=== PATIENT | female | born 1995 | race Caucasian/White ===

== ENCOUNTER 2017-05-11 07:10 | Inpatient (IN) | payer OTHER ==
[2017-05-11] MEDS ORDERED: AMPICILLIN SODIUM 2 GM VIAL ONE (09:02)
[2017-05-11] MEDS ORDERED: TUBERCULIN PPD 5 TU/0.1ML SYRINGE (IN PATIENT USE ONLY) ID ONE (09:15)
[2017-05-11] MEDS ORDERED: AMPICILLIN - 2 GM in SODIUM CHLORIDE 100 ML IVPB ONE (09:29)
[2017-05-11] MEDS ORDERED: OXYTOCIN 20 UNITS in 0.9% NS 40 UNIT/2,000 ML INFUS.BAG IV ONE (09:29)
[2017-05-11] MEDS ORDERED: LIDOCAINE HCL 1% PRESERVATIVE FREE - 30ML VIAL ONE (09:29)
[2017-05-11] MEDS ORDERED: ELECTROLYTE-148 SOLN 1,000 ML IV SCH (09:30)
--- NOTE | 2017-05-11 09:34 | HP ---
Past Medical History - Admission Chief Complaint: Labor pain History of Present Illness: 22 yo @ 39 weeks gestation, EDC 05/18/17 admitted for labor pain. History Source: Patient Limitations to Obtaining History: No Limitations - Past Medical History ...: 2 ...Para: 1 ...Term: 1 ...EDC by Debbie: 05/17/17 - Past Surgical History Past Surgical History: Yes: None Hx Myomectomy: No Hx Transabdominal Cerclage: No - Smoking History Have you smoked in the past 12 months: No - Alcohol/Substance Use Hx Alcohol Use: No History of Substance Use: reports: None - Social History Usual Living Arrangement: Yes: With Spouse History of Recent Travel: No Home Medications - Allergies Allergies/Adverse Reactions: Allergies Allergy/AdvReac Type Severity Reaction Status Date / Time No Known Allergies Allergy Verified 01/19/17 22:19 - Home Medications Home Medications: Ambulatory Orders Vitamins (Sjr) - 1 tab PO DAILY 05/11/17 Family Disease History - Family Disease History Family History: Unremarkable Review of Systems - Review of Systems Constitutional: reports: No Symptoms Eyes: reports: No Symptoms HENT: reports: No Symptoms Neck: reports: No Symptoms Cardiovascular: reports: No Symptoms Respiratory: reports: No Symptoms Gastrointestinal: reports: No Symptoms Genitourinary: reports: Pain Breasts: reports: No Symptoms Reported Musculoskeletal: reports: No Symptoms Integumentary: reports: No Symptoms Neurological: reports: No Symptoms Endocrine: reports: No Symptoms Hematology/Lymphatic: reports: No Symptoms Pain Intensity: 8 Physical Exam - Maternity Constitutional: Yes: Well Nourished Eyes: Yes: Conjunctiva Clear HENT: Yes: Atraumatic Neck: Yes: Supple Cardiovascular: Yes: Regular Rate and Rhythm Lungs: Clear to auscultation Breast(s): Yes: WNL - Abdominal Exam/OB Number of Fetuses: Single Presentation: Vertex Contractions: Yes Regularity: Irregular - Vaginal Exam/OB Dilatation (cm): 4 Effacement (%): 80 Amniotic Membrane Status: Ruptured Amniotic Fluid: Yes: Clear Station: -2 - Physical Exam Integumentary: Yes: WNL ...Motor Strength: WNL Psychiatric: Yes: Alert, Oriented Problem List - Problems (1) Pain during labor Code(s): O99.89 - OTH DISEASES AND CONDITIONS COMPL PREG/CHLDBRTH; R52 - PAIN, UNSPECIFIED Assessment/Plan Active labor Analgesia as needed Anticipate
[2017-05-11 09:50] VITALS: BMI 34.3
[2017-05-11 10:00] LABS: INR 0.98 (0.82-1.09); PROTHROMBIN TIME (PATIENT) 11.1 SEC (9.98-11.88)
[2017-05-11 10:02] LABS: ACTIVATED PTT 22.4 SECONDS (26.9-34.4)
[2017-05-11 10:07] LABS: BASO % 0.5 % (0-2.0); EOS % 0.1 % (0-4.5); HEMATOCRIT 35.2 % (32.4-45.2); HEMOGLOBIN 11.1 GM/dL (10.7-15.3); LYMPH % 12.5 % (8-40); MCH 25.1 pg (25.7-33.7); MCHC 31.4 g/dl (32.0-36.0); MEAN PLT VOLUME 8.9 fl (7.5-11.1); MONO % 6.6 % (3.8-10.2); NEUT % 80.3 % (42.8-82.8); PLATELET COUNT 291 K/MM3 (134-434); RDW 15.8 % (11.6-15.6); WHITE BLOOD COUNT 15.9 K/mm3 (4.0-10.0)
[2017-05-11 10:15] LABS: ANION GAP 12 (8-16); BLOOD UREA NITROGEN 7 mg/dL (7-18); CALCIUM 8.1 mg/dL (8.5-10.1); CHLORIDE 103 mmol/L (98-107); CO2 20 mmol/L (21-32); CREATININE 0.5 mg/dL (0.55-1.02); GLUCOSE,RANDOM 115 mg/dL (74-106); POTASSIUM 3.9 mmol/L (3.5-5.1); SODIUM 135 mmol/L (136-145)
[2017-05-11] MEDS ORDERED: BISACODYL 10 MG SUPP.RECT RC PRN (10:24)
[2017-05-11] MEDS ORDERED: WITCH HAZEL 50% (TUCKS) 40 PAD/JAR PAD TP PRN (10:24)
[2017-05-11] MEDS ORDERED: BENZOCAINE 20% 57 GM BOTTLE TP PRN (10:24)
[2017-05-11] MEDS ORDERED: BENZOCAINE 28 GM HEMORRHOIDAL OINTMENT TP PRN (10:24)
[2017-05-11] MEDS ORDERED: METHYLERGONOVINE MALEATE 0.2 MG/1 ML AMP IM PRN (10:24)
--- NOTE | 2017-05-11 10:27 | PN ---
Delivery - Delivery Vaginal Delivery: Spontaneous Episiotomy/Laceration: None EBL (cc): 250 Delivery, Single - Feeding Plan Initial Plan: Exclusive throughout hospitalization Remarks - Remarks Remarks: Normal spontaneous vaginal delivery of a live girl over intact perineum. Nose / Oropharynx suctioned @ perineum. Cord clamped and cut. Placenta expelled spontaneously intact Mother in stable condition
[2017-05-11] MEDS ORDERED: OXYTOCIN 20 UNITS in 0.9% NS 20 UNIT/1,000 ML INFUS.BAG IV SCH (10:30)
[2017-05-11] MEDS: IBUPROFEN 600 MG TABLET (FP) PO PRN ×3 (12:12→20:14)
[2017-05-11] MEDS: FERROUS SO4 325 MG TABLET (FP) PO SCH ×2 (12:12→16:37)
[2017-05-11] MEDS: ACETAMINOPHEN 325 MG TABLET (FP) PO PRN ×3 (12:13→20:15)
--- NOTE | 2017-05-12 06:21 | PN ---
Post Note - Post Date of Delivery: 05/11/17 Vital Signs: Vital Signs - 24 hr 05/11/17 05/11/17 05/11/17 09:00 09:39 10:30 Temperature 97.4 F L Pulse Rate 72 72 82 Respiratory 20 20 20 Rate Blood Pressure 130/74 121/72 136/85 05/11/17 05/11/17 05/11/17 10:45 11:00 11:15 Temperature 98.4 F Pulse Rate 80 90 92 H Respiratory 20 20 20 Rate Blood Pressure 131/77 135/71 134/80 05/11/17 05/11/17 05/11/17 11:48 16:00 21:37 Temperature 98.6 F 98.7 F 99.3 F Pulse Rate 77 94 H 73 Respiratory 20 20 18 Rate Blood Pressure 139/76 114/64 120/58 05/12/17 05/12/17 02:00 06:00 Temperature 97.9 F 98.7 F Pulse Rate 73 67 Respiratory 18 18 Rate Blood Pressure 110/61 130/80 Labs: Laboratory Results - last 24 hr 05/11/17 05/11/17 05/11/17 09:30 09:30 09:30 WBC 15.9 H RBC 4.40 Hgb 11.1 Hct 35.2 MCV 80.0 MCH 25.1 L MCHC 31.4 L RDW 15.8 H Plt Count 291 MPV 8.9 Neutrophils % 80.3 Lymphocytes % 12.5 Monocytes % 6.6 Eosinophils % 0.1 Basophils % 0.5 PT with INR 11.10 INR 0.98 PTT (Actin FS) 22.4 L Sodium 135 L Potassium 3.9 Chloride 103 Carbon Dioxide 20 L Anion Gap 12 BUN 7 Creatinine 0.5 L Random Glucose 115 H Calcium 8.1 L RPR Titer Blood Type Antibody Screen 05/11/17 05/11/17 05/11/17 09:30 09:30 10:40 WBC RBC Hgb Hct MCV MCH MCHC RDW Plt Count MPV Neutrophils % Lymphocytes % Monocytes % Eosinophils % Basophils % PT with INR INR PTT (Actin FS) Sodium Potassium Chloride Carbon Dioxide Anion Gap BUN Creatinine Random Glucose Calcium RPR Titer Nonreactive Blood Type A POSITIVE A POSITIVE Antibody Screen Negative - Subjective Subjective: No Complaints - Objective Afebrile: Yes Breast: Not engorged Abdomen: Soft, Non-tender Uterus: Fundus firm Vagina: Scant lochia Extremities: Non-tender - Assessment/Plan (1) (normal spontaneous vaginal delivery) Assessment: S/P Normal Plan: Routine Care
[2017-05-12 08:40] LABS: BASO % 0.3 % (0-2.0); EOS % 0.4 % (0-4.5); HEMATOCRIT 34.8 % (32.4-45.2); HEMOGLOBIN 10.9 GM/dL (10.7-15.3); LYMPH % 22.7 % (8-40); MCH 25.1 pg (25.7-33.7); MCHC 31.2 g/dl (32.0-36.0); MEAN CELL VOLUME 80.4 fl (80-96); MEAN PLT VOLUME 8.7 fl (7.5-11.1); NEUT % 68.6 % (42.8-82.8); PLATELET COUNT 273 K/MM3 (134-434); RBC 4.33 M/mm3 (3.60-5.2); RDW 16.3 % (11.6-15.6); WHITE BLOOD COUNT 16.1 K/mm3 (4.0-10.0)
[2017-05-12] MEDS: FERROUS SO4 325 MG TABLET (FP) PO SCH ×3 (08:52→16:58)
[2017-05-12] MEDS: ACETAMINOPHEN 325 MG TABLET (FP) PO PRN ×2 (10:27→20:48)
[2017-05-12] MEDS: PRENATAL VITAMINS W/ FOLIC ACID TABLET (FP) PO SCH (10:27)
[2017-05-12] MEDS: IBUPROFEN 600 MG TABLET (FP) PO PRN ×2 (10:28→20:48)
[2017-05-12] MEDS ORDERED: SENNOSIDES/DOCUSATE COMBO (SENNA PLUS) TABLET (UD) PO PRN (22:00)
[2017-05-13] MEDS: FERROUS SO4 325 MG TABLET (FP) PO SCH ×2 (07:28→12:24)
[2017-05-13 08:37] VITALS: BP 124/68; PULSE 75; TEMP 98.4
[2017-05-13] MEDS: PRENATAL VITAMINS W/ FOLIC ACID TABLET (FP) PO SCH (09:26)
--- NOTE | 2017-05-13 10:22 | DS ---
Physical Exam-HYDRATE CONTROL TENDER Vital Signs: Vital Signs Temperature 98.4 F 05/13/17 08:36 Pulse Rate 75 05/13/17 08:36 Respiratory Rate 18 05/13/17 08:36 Blood Pressure 124/68 05/13/17 08:36 O2 Sat by Pulse Oximetry (%) Constitutional: Yes: Well Nourished Eyes: Yes: Conjunctiva Clear HENT: Yes: Atraumatic Neck: Yes: Supple Cardiovascular: Yes: Regular Rate and Rhythm Respiratory: Yes: Regular Gastrointestinal: Yes: Normal Bowel Sounds External Genitalia: Yes: Normal Vaginal Exam: Yes: Normal Uterus: Yes: Firm ....Post : Yes: Uterus firm, Moderate lochia serosa Breast(s): Yes: WNL Neurological: Yes: Alert, Oriented ...Motor Strength: WNL Psychiatric: Yes: Alert, Oriented Labs: CBC, BMP 05/12/17 08:00 05/11/17 09:30 Delivery - Delivery Vaginal Delivery: Spontaneous Episiotomy/Laceration: None EBL (cc): 250 Delivery, Single - Stages of Labor Date 1st Stage Initiatied: 05/11/17 Time 1st Stage Initiated: 05:00 Date 2nd Stage Initiated: 05/11/17 Time 2nd Stage Initiated: 10:00 Date of Delivery: 05/11/17 Time of Delivery: 10:07 Time Placenta Delivered: 10:12 - Condition of 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 F/U with MD in 6 weeks Disposition: HOME - Home Medications Comprehensive Discharge Medication List: Ambulatory Orders Vitamins (Sjr) - 1 tab PO DAILY 05/11/17
== END 2017-05-13 12:00 | disposition home or self-care (01) | DRG 560 ==
LOC: JDEL 07:10 → JLDR 09:00 → J3W 11:40
PROVIDERS: ADMIT Obstetrics & Gynecology; ATTEND Obstetrics & Gynecology
PROC: 10E0XZZ Delivery of Products of Conception, External Approach (ICD-10-PCS; principal; 2017-05-11)
DX: O80 Encounter for full-term uncomplicated delivery (principal); Z3A.39 39 weeks gestation of pregnancy; Z37.0 Single live birth
CPT/HCPCS: 36415; 59409; 80048; 85025; 85610; 85730; 86593; 86850; 86900; 86901

== ENCOUNTER 2018-08-18 09:59 | Emergency (ER) | payer OTHER ==
[2018-08-18 10:18] VITALS: BP 140/76; PULSE 78; TEMP 98; BMI 29.0
[2018-08-18] MEDS ORDERED: NAPROXEN 500 MG TABLET (FP) PO ONE (11:13)
[2018-08-18] MEDS ORDERED: NAPROXEN 500 MG TABLET (FP) ONE (11:15)
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
== END 2018-08-18 11:45 | disposition home or self-care (01) ==
LOC: JERFT 09:59
DX: M62.838 Other muscle spasm (principal); V49.49XA Driver injured in collision with other motor vehicles in traffic accident, initial encounter; Y92.414 Local residential or business street as the place of occurrence of the external cause; Y93.89 Activity, other specified; Y99.8 Other external cause status
CPT/HCPCS: 99281-25